=== PATIENT | male | born 1965 | race Caucasian/White ===

== ENCOUNTER 2020-07-21 02:45 | Emergency (ER) | payer BC ==
[~2020-07-21 02:45] MED LIST: FLOMAX0.4 MG PO; IBUPROFEN600 MG PO; LIPITOR TAB 2020 MG PO; LISINOPRIL20 MG PO; LOW DOSE ASPIRI81 MG PO; METOPROLOL TART25 MG PO; NEURONTIN 300300 MG PO; PERCOCET 5/325 T1 EA PO; PLAVIX 75 MG TA75 MG PO; ZOFRAN ODT 4 MG4 MG PO
[2020-07-21 03:30] LABS: RED BLOOD COUNT 4.74 M/UL (4.20-5.50); WHITE BLOOD COUNT 10.8 K/UL (4.5-11.0)
[2020-07-21 03:50] LABS: BUN/CREATININE RATIO 19 (0-10)
[2020-07-21] MEDS ORDERED: AZITHROMYCIN500 MG PO (06:03)
== END 2020-07-21 06:15 | disposition home or self-care (01) ==
LOC: ER1 02:45
PROVIDERS: Emergency Medicine
DX: J18.9 Pneumonia, unspecified organism (principal); I25.10 Atherosclerotic heart disease of native coronary artery without angina pectoris; I10 Essential (primary) hypertension; E78.5 Hyperlipidemia, unspecified; Z20.822 Contact with and (suspected) exposure to COVID-19; Z95.5 Presence of coronary angioplasty implant and graft; Z87.891 Personal history of nicotine dependence
CPT/HCPCS: 36415; 36600; 71045; 80053; 82550; 82553; 82803; 83690; 83735; 83874; 83880; 84100; 84484; 85025; 85610; 85730; 93005; 99285; U0002